=== PATIENT | female | born 1985 | race African-American/Black ===

== ENCOUNTER 2017-01-17 18:28 | Emergency (ER) | payer OTHER ==
--- NOTE | ~2017-01-17 | CT4 ---
[facility] A Service of [facility] RADIOLOGY TEXT RESULTS PATIENT: MARGI BREWSTER LOCATION: [facility] : [birth year] UNIT #: [id number] AGE: [address]: Raymundo Cameron MD SEX: F ORDER DR: [id number] [facility] [address] [place], [place] [address] [id number] MR#: [id number] Acc #: [id number] NAME: MARGI BREWSTER : 1985 SEX: F STUDY DATE/TIME: 01/17/2017 21:53 UNIT: [facility] ROOM: STUDY DESCRIPTION: CT Abd and Pelv Wo Cont Attending Physician: Raymundo Cameron M.D. Ordering Physician: Jean Carlos Low D.O. Primary Care Physician: Leola Coffman M.D. MEDICAL IMAGING REPORT This report is preliminary unless electronic signature is present EXAM CT abdomen and pelvis without contrast HISTORY Soft tissue infection at section incision. Pain for [address] exam was performed with one or more of the following radiation dose reduction techniques: automatic exposure control, adjustment of mA and/or kV according to patient size, and iterative reconstruction. FINDINGS CT abdomen and pelvis was performed with oral contrast and without IV contrast. CT ABDOMEN: The liver, gallbladder, spleen, pancreas, kidneys, and adrenal glands are normal. No bowel dilatation. No ascites or adenopathy. Normal caliber abdominal aorta. CT PELVIS: Normal appendix. Minimal free fluid. Moderate generalized uterine enlargement. Bilateral tubal ligation clips. Moderate subcutaneous stranding over the anterior pelvis and lower abdomen bilaterally. Small fluid collection over the anterior pelvis in the midline in the deep subcutaneous tissues, abutting the anterior margin of the rectus abdominis muscles, measuring close to 2.5 cm x 6.6 cm. There are several small air bubbles along the left anterior margin of this fluid collection and extending into the adjacent subcutaneous fat. These could be residual postoperative changes. A small infected fluid collection is not excluded. Evaluation is partly limited without IV contrast. IMPRESSION 1. Small fluid collection in the deep subcutaneous tissues over the [facility] A Service of [facility] RADIOLOGY TEXT RESULTS PATIENT: MARGI BREWSTER LOCATION: [facility] : [birth year] UNIT #: [id number] AGE: [address]: Raymundo Cameron MD SEX: F ORDER DR: anterior pelvic midline abutting the anterior margin of the rectus abdominis muscles measuring close to 2.5 cm x 6.6 cm containing several small air bubbles which also extend into the adjacent subcutaneous fat over the left anterior lower pelvis. These could be residual postoperative changes. A small infected fluid collection is not excluded. There is moderate subcutaneous stranding over the anterior lower abdomen and pelvis bilaterally which could be due to residual postoperative edema or cellulitis. 2. There is only minimal free fluid in the pelvis. No loculated fluid collections or inflammatory stranding within the intraperitoneal abdomen or pelvis. Dictated by... Amarjit Alexis M.D. THIS IS AN ELECTRONICALLY VERIFIED REPORT Amarjit Alexis M.D. at 01/18/2017 5:47 PM MONA/misty TD: 01/17/2017 23:10 JOB #: [id number] MEDICAL IMAGING REPORT Page 1 of 1 COPY
[~2017-01-17 18:28] MED LIST: BENTYL20 MG PO; DIARRHEA MED; FLEXERIL10 MG PO; ORUDIS75 M1 DOB; PRENATAL MULITV1 TAB PO; ZOFRANODT PO
[2017-01-17 21:01] LABS: URINE SOURCE CLEAN CATCH
[2017-01-17 21:04] LABS: URINE APPEARANCE CLEAR; URINE BILIRUBIN NEG (NEG); URINE BLOOD 3+ (NEG); URINE COLOR YELLOW; URINE GLUCOSE NEG (NEG); URINE KETONE NEG (NEG); URINE LEUKOCYTE ESTERASE 1+ (NEG); URINE NITRATE NEG (NEG); URINE PROTEIN NEG (NEG); URINE SPECIFIC GRAVITY 1.021 (1.003-1.035)
[2017-01-17 21:06] LABS: CULTURE INDICATED? YES; URINE BACTERIA AUWI NEG (NEGATIVE); URINE SQUAMOUS EPITHELIAL CELL OCC /[HPF]
[2017-01-17 21:10] LABS: BASOPHIL# 0.1 X10e3 (0-0.3); BASOPHIL% 0.7 % (0-2.5); EOSINOPHIL# 0.4 X10e3 (0-0.7); EOSINOPHIL% 3.5 % (0.0-7.0); HEMATOCRIT 32.4 % (35.0-45.0); HEMOGLOBIN 10.1 gm/dL (12.0-16.0); LYMPHOCYTE# 3.1 X10e3 (1.0-3.5); LYMPHOCYTE% 25.1 % (17.0-45.0); MEAN CORPUSCULAR HEMOGLOBIN 27.1 PG (28-34); MEAN CORPUSCULAR HGB CONC 31.2 g/dL (30-36); MEAN PLATELET VOLUME 6.6 FL (6.5-11.5); MONOCYTE# 0.8 X10e3 (0-1.0); MONOCYTE% 6.8 % (3.0-12.0); NEUTROPHIL# 7.8 X10e3 (1.5-7.1); NEUTROPHIL% 63.9 % (40-75); PLATELET COUNT 734 X10e3 (140-420); RED BLOOD COUNT 3.73 X10e (3.90-5.30); RED CELL DISTRIBUTION WIDTH 14.3 % (11.0-15.5); WHITE BLOOD COUNT 12.3 X10e3 (4.0-10.5)
[2017-01-17 21:11] LABS: DIFF IND NO
[2017-01-17 21:50] LABS: ALBUMIN SERUM 2.8 g/dL (3.5-5.0); BILIRUBIN,TOTAL 0.3 mg/dL (0.2-2.0); BUN/CREATININE RATIO 12.5; CALCIUM SERUM 8.7 mg/dL (8.4-10.2); CREATININE SERUM 0.8 mg/dL (0.6-1.4); GLOM FILT RATE Estimated 115.6 mL/min (>60); POTASSIUM 3.8 mmol/L (3.5-5.1); PROTEIN TOTAL SERUM 7.2 g/dL (6.0-8.3)
== END 2017-01-18 03:35 | disposition home or self-care (01) ==
LOC: CED 18:28
PROVIDERS: Emergency Medicine
DX: O86.0 Infection of obstetric surgical wound (principal); L03.311 Cellulitis of abdominal wall; Z88.0 Allergy status to penicillin; Z88.1 Allergy status to other antibiotic agents; Z88.2 Allergy status to sulfonamides; Z91.041 Radiographic dye allergy status
CPT/HCPCS: 36415; 74176; 80053; 81003; 83690; 85025; 87070; 87086; 87205; 96361; 96365; 96366; 96367; 96375; 99284; J0696; J2270; J3370

== ENCOUNTER 2017-05-01 02:09 | Emergency (ER) | payer OTHER ==
[~2017-05-01] VITALS: Ht 152.4 cm; Wt 105.2 kg
== END 2017-05-01 03:00 | disposition home or self-care (01) ==
LOC: CED 02:09
DX: B34.9 Viral infection, unspecified (principal); J06.9 Acute upper respiratory infection, unspecified; K21.9 Gastro-esophageal reflux disease without esophagitis; F41.9 Anxiety disorder, unspecified
CPT/HCPCS: 99283